=== PATIENT | male | born 2000 | race Caucasian/White ===

== ENCOUNTER 2021-10-28 10:33 | Emergency (ER) | payer OTHER, SELFPAY ==
--- NOTE | 2021-10-28 10:43 | ED.URI ---
HPI - URI/Sore Throat General Chief Complaint: Upper Respiratory Infection Stated Complaint: SWOLLEN UVULA Time Seen by Provider: 10/28/21 10:50 Source: patient, RN notes reviewed and old records reviewed Mode of arrival: ambulatory Limitations: no limitations History of Present Illness HPI Narrative: 20 year old male accompanied by mother presents to express care with complaints of awakening this morning with complaints of swelling of uvula and swelling of tonsils noted this morning with minimal pain stated with swallowing. Patient denies any fevers, chills or sweats, no body aches reported.Patient has had COVID vaccinations and flu shot. Patient denies any nasal congestion and drainage, no cough or any shortness of breath. MD elicited complaint: other (swollen red uvula with swelling of tonsils) Pertinent past history: seasonal allergies Onset (ago): hour(s) (2) Consistency: constant Severity: moderate Able to tolerate fluids by mouth: Yes Exacerbating factors: swallowing Associated symptoms: denies other symptoms Treatments prior to arrival: none Related Data Home Medications Medication Instructions Recorded Confirmed levothyroxine 10/28/21 Allergies Allergy/AdvReac Type Severity Reaction Status Date / Time No Known Allergies Allergy Verified 10/28/21 10:45 Review of Systems Review of Systems: CONSTITUTIONAL: Denies fever, chills, or sweats. EYES: Denies visual changes, redness, or discharge. ENT: Denies rhinorrhea, congestion, enlarged swollen uvula with redness and swelling of tonsils, no otalgia. CARDIOVASCULAR: Denies chest pain, palpitations, or edema. RESPIRATORY: Denies cough or dyspnea. GASTROINTESTINAL: Denies abdominal pain, nausea, vomiting, or diarrhea. GENITOURINARY: Denies dysuria or hematuria. SKIN: Denies rash or itching. MUSCULOSKELETAL: Denies back pain, joint pain, or myalgia. NEUROLOGIC: Denies headache, numbness, or weakness. PSYCHIATRIC: Denies anxiety or depression. All systems reviewed & are unremarkable except as noted in HPI and below PMFSH Past Medical History Medical History (Updated 10/28/21 @ 23:05 by Dolores Agee NP) Environmental allergies Hypothyroid Surgical History Surgical History (Updated 10/28/21 @ 22:50 by Dolores gAee NP) No history of previous surgery Social History Social History (Updated 10/28/21 @ 11:02 by Dolores Agee NP) Smoking status: Never smoker Alcohol intake: current Alcohol use details: social Substance use: never Occupation/Education: student Gender identity (if verbalized by the patient): Male Comments At time of signature, agree with nursing past medical, surgical, social and family history. There is no relevant family history pertinent to the presenting complaint Exam Narrative: GENERAL: Well-appearing, well-nourished, obese and in no acute distress. HEAD: Normocephalic, atraumatic. EYES: PERRLA and EOMI. ENT: Nares clear, no rhinorrhea or epistaxis. Mucous membranes moist.TM's normal with good light reflex, throat red with no exudates or lesions, Uvula red swollen midline tonsils greatly enlarged bright red NECK: Supple.lymphadenopathy CHEST: Clear to auscultation. No respiratory distress.no tachypnea SAO2 99% on room air HEART: Regular rate and rhythm. No murmur heard. Normal peripheral pulses. ABDOMEN: Soft, nontender, nondistended, normal active bowel sounds. EXTREMITIES: Normal range of motion. No edema. SKIN: Warm, dry, no rash. NEURO: No focal deficits. Alert and oriented x3. Course Course Level of Care: Express Care Visit Vital Signs Vital signs: Vital Signs Temperature 36.6 C 10/28/21 10:52 Pulse Rate 96 10/28/21 10:52 Respiratory Rate 16 10/28/21 10:52 Blood Pressure 148/79 H 10/28/21 10:52 Pulse Oximetry 99 10/28/21 10:52 Temperature 36.6 C 10/28/21 10:52 Pulse Rate 96 10/28/21 10:52 Respiratory Rate 16 10/28/21 10:52 Blood Pressure 148/79 H 10/28/21 10
[2021-10-28 10:52] VITALS: BP 148/79; PULSE 96; RESP 16; TEMP 36.6; O2SAT 99
[2021-10-29 08:58] LABS: SARS-CoV-2 RNA PCR Negative
== END 2021-10-28 11:15 | disposition home or self-care (01) ==
PROVIDERS: Emergency Provider Registered Nurse
DX: J03.90 Acute tonsillitis, unspecified (principal); K13.79 Other lesions of oral mucosa; Z20.822 Contact with and (suspected) exposure to COVID-19; E03.9 Hypothyroidism, unspecified
CPT/HCPCS: 87081; 87880; 99213; C9803; G0463; U0003; U0005